=== PATIENT | male | born 1945 | race Caucasian/White ===

== ENCOUNTER 2019-03-25 09:46 | Emergency (ER) | payer BC, MEDICARE ==
[2019-03-25 10:25] LABS: ABS Eosinophils 0.1 10^3/ul (0-0.6); ABS Lymphocytes 0.5 10^3/ul (1.0-4.8); ABS Monocytes 0.5 10^3/ul (0-0.8); ABS Neutrophils 5.2 10^3/ul (1.5-7.7); Eosinophil % 1.2 %; Hematocrit 43 % (42-52); Hemoglobin 15.2 g/dL (14.0-18.0); Lymphocyte % 8.3 %; Mean Corpuscular HGB Conc 35 g/dL (31-36); Mean Corpuscular Hemoglobin 32 pg (27-31); Mean Corpuscular Volume 92 fL (80-94); Mean Platelet Volume 8.9 fL (7.4-10.4); Nucleated Red Blood Cells % 0.1; Platelet Count 214 10^3/uL (150-450); Red Cell Distribution Width 14 % (10-15); White Blood Count 6.4 10^3/uL (3.5-10.8)
[2019-03-25 10:43] LABS: ALT 41 U/L (7-52); AST 26 U/L (13-39); Albumin 4.1 g/dL (3.2-5.2); Alkaline Phosphatase 66 U/L (34-104); Anion Gap 7 mmol/L (2-11); Blood Urea Nitrogen 16 mg/dL (6-24); CO2 Carbon Dioxide 27 mmol/L (22-32); Calcium 9.1 mg/dL (8.6-10.3); Chloride 103 mmol/L (101-111); EGFR African American 82.2 (>60); EGFR Non-African American 67.9 (>60); Globulin 2.1 g/dL (2-4); Glucose 103 mg/dL (70-100); Potassium 4.3 mmol/L (3.5-5.0); Sodium 137 mmol/L (135-145); Total Protein 6.2 g/dL (6.4-8.9)
--- NOTE | 2019-03-25 10:57 | ED ---
Neurological HPI - HPI Summary HPI Summary: This pt is a 74 Y/O M presenting to [facility] with a CC of issues with his memory and confusion that have been increasing over the course of a year and worsened this morning. He states that he was driving home and was getting fuzzy last night after being at a clinic. He states that he barely remembers the drive home but does not remember going to bed. He currently denies any headache, chest pain, or recent fevers. His associate states that the pt made an unusual statement to his driver merchandiser about my computer is broken, I need more chicken to add to the cloud. The driver merchandiser also informed his associate that he has been having issues with his memory that has been increasing while he is in [place] for work and is unable to remember the event and makes more unusual comments. He states that he fell yesterday in [place] and states that he vaguely remember the event. He states that he has been having an increase of stress after his in June of 2018. He states that he does not have regular sleep and has been having recent illnesses. He denies any fever, chills, erythema of eyes, sore throat, CP, SOB, cough, abdominal pain, N/V, dysuria, hematuria, myalgia, edema, rash, or dizziness. He has a SHx of drinking alcohol rarely. He has a FHx of cardiac disease. He denies any pertinent PMHx. He has no aggravating or alleviating factors. 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 Negative: Headache, Dizziness, Nausea/Vomiting, Fever, Neck Pain/Stiffness, Chest Pain, Shortness of Breath - Allergy/Home Medications Allergies/Adverse Reactions: Allergies Allergy/AdvReac Type Severity Reaction Status Date / Time Penicillins Allergy Unknown Verified 03/25/19 09:52 Reaction Details Home Medications: Home Medications Acetylcarnitin/Alpha Lipoic AC [Acetyl l-Carnitine/Alpha] 1 cap PO DAILY [History Confirmed 03/25/19] Bio Shape 1 cap PO DAILY 03/25/19 [History Confirmed 03/25/19] Cholecalciferol CAP/TAB(NF) [Vitamin D3 CAP/TAB (NF)] 2,000 unit PO DAILY [History Confirmed 03/25/19] Ginkgo Biloba (NF) [Ginkgo Biloba Extract (NF)] 120 mg PO DAILY 03/25/19 [ History Confirmed 03/25/19] Ginseng 500 mg PO DAILY 03/25/19 [History Confirmed 03/25/19] Krill/Om-3/Dha/Epa/Phospho/Ast [Megared [place]-3 Krill Oil 500 mg] 1 cap PO DAILY 03/25/19 [History Confirmed 03/25/19] L.acidoph,Paracasei, B.lactis [Probiotic] 1 each PO DAILY 03/25/19 [History Confirmed 03/25/19] Niacin ER CAP* [Niaspan ER CAP*] 500 mg PO DAILY 03/25/19 [History Confirmed ] Rhodiola Rosea 1 cap PO DAILY 03/25/19 [History Confirmed 03/25/19] Rosuvastatin (NF) [Crestor (NF)] 40 mg PO DAILY 03/25/19 [History Confirmed ] Testosterone Cypionate (NF) 0.2 ml IM .2X/WEEK 03/25/19 [History Confirmed 03/25] Ubidecarenone [Coq-10 Tr] 400 mg PO DAILY 03/25/19 [History Confirmed 03/25/19] Vitamin B Complex CAP* [B Complex CAP*] 1 cap PO DAILY 03/25/19 [History Confirmed 03/25/19] Vitamin E CAP* 400 unit PO DAILY 03/25/19 [History Confirmed 03/25/19] metFORMIN* [Glucophage 500 MG TAB *] 500 mg PO DAILY 03/25/19 [History Confirmed 03/25/19] PMH/Surg Hx/FS Hx/Imm Hx Previously Healthy: Yes Endocrine/Hematology History: Denies: Hx Diabetes Cardiovascular History: Denies: Hx Deep Vein Thrombosis, Hx Hypertension Respiratory History: Denies: Hx Asthma Sensory History: Reports: Hx Contacts or Glasses Opthamlomology History: Reports: Hx Contacts or Glasses - Cancer History Hx Chemotherapy: No Hx Radiation Therapy: No - Surgical History Surgical History: Yes Surgery Procedure, Year, and Place: States that in earlier he had a hole repair in his diaphgram. - Immunization History Immunizations Up to Date: Yes Infectious Disease History: No Infectious Disease History: Denies: Traveled Outside the [place] in Last 30 Days - Family History Known Family History: Positive: Cardiac Disease - Social History Occupation: Employed Full-time Lives: With Family Alcohol Use: Rare Hx Substance Use: No Substance Use Type: Reports: None Hx Tobacco Use: No Smoking Status (MU): Never Smoked Tobacco Review of Systems Negative: Fever, Chills Negative: Erythema Negative: Sore Throat Negative: Chest Pain Negative: Shortness Of Breath, Cough Negative: Abdominal Pain, Vomiting, Nausea Negative: dysuria, frequency, hematuria, urgency Negative: Myalgia, Edema Negative: Rash Neurological: Negative - dizziness, Other - memory loss, confusion Psychological: Other - states increase in stress All Other Systems Reviewed And Are Negative: Yes Physical Exam - Summary Physical Exam Summary: Constitutional: Well-developed, Well-nourished, Alert. (-) Distressed Skin: Warm, Dry HENT: Normocephalic; Atraumatic Eyes: Conjunctiva normal Neck: Musculoskeletal ROM normal neck. (-) JVD, (-) Stridor, (-) Tracheal deviation Cardio: Rhythm regular, rate normal, Heart sounds normal; Intact distal pulses; The pedal pulses are 2+ and symmetric. Radial pulses are 2+ and symmetric. (-) Murmur Pulmonary/Chest wall: Effort normal. (-) Respiratory distress, (-) Wheezes, (-) Rales Abd: Soft. (-) Tenderness, (-) Distension, (-) Guarding, (-) Rebound Musculoskeletal: (-) Edema Lymph: (-) Cervical adenopathy Neuro: Alert, Oriented x3, Strength normal, Cranial nerves II-XII are grossly intact. (-) Dysmetria, (-) Nystagmus, (-) Ataxia by finger to nose testing, (-) Sensory deficit. No focal deficits, speech stumbles at times, disoriented Psych: Mood and affect Normal Triage Information Reviewed: Yes Vital Signs On Initial Exam: Initial Vitals Temp Pulse Resp BP Pulse Ox 99.3 F 86 14 137/82 97 03/25/19 09:49 03/25/19 09:49 03/25/19 09:49 03/25/19 09:49 03/25/19 09:49 Vital Signs Reviewed: Yes Procedures - Sedation Patient Received Moderate/Deep Sedation with Procedure: No Diagnostics - Vital Signs Vital Signs Temp Pulse Resp BP Pulse Ox 03/25/19 10:00 100 96 03/25/19 09:58 93 115/76 95 03/25/19 09:57 99 96 03/25/19 09:49 99.3 F 86 14 137/82 97 - Laboratory Lab Results: Lab Results 03/25/19 03/25/19 03/25/19 Range/Units 10:13 10:13 10:13 WBC 6.4 (3.5-10.8) 10^3/uL RBC 4.70 (4.18-5.48) 10^6 /uL Hgb 15.2 (14.0-18.0) g/dL Hct 43 (42-52) % MCV 92 (80-94) fL MCH 32 H (27-31) pg MCHC 35 (31-36) g/dL RDW 14 (10-15) % Plt Count 214 (150-450) 10^3/uL MPV 8.9 (7.4-10.4) fL Neut % (Auto) 81.5 % Lymph % (Auto) 8.3 % Bell % (Auto) 8.5 % Eos % (Auto) 1.2 % Baso % (Auto) 0.5 % Absolute Neuts (auto) 5.2 (1.5-7.7) 10^3/ul Absolute Lymphs (auto) 0.5 L (1.0-4.8) 10^3/ul Absolute Monos (auto) 0.5 (0-0.8) 10^3/ul Absolute Eos (auto) 0.1 (0-0.6) 10^3/ul Absolute Basos (auto) 0.0 (0-0.2) 10^3/ul Absolute Nucleated RBC 0.0 10^3/ul Nucleated RBC % 0.1 Sodium 137 (135-145) mmol/L Potassium 4.3 (3.5-5.0) mmol/L Chloride 103 (101-111) mmol/L Carbon Dioxide 27 (22-32) mmol/L Anion Gap 7 (2-11) mmol/L BUN 16 (6-24) mg/dL Creatinine 1.07 (0.67-1.17) mg/dL Est GFR ( Amer) 82.2 (>60) Est GFR (Non-Af Amer) 67.9 (>60) BUN/Creatinine Ratio 15.0 (8-20) Glucose 103 H (70-100) mg/dL Lactic Acid 0.7 (0.5-2.0) mmol/L Calcium 9.1 (8.6-10.3) mg/dL Total Bilirubin 1.60 H (0.2-1.0) mg/dL AST 26 (13-39) U/L ALT 41 (7-52) U/L Alkaline Phosphatase 66 (34-104) U/L Troponin I 0.05 H* (<0.03) ng/mL Total Protein 6.2 L (6.4-8.9) g/dL Albumin 4.1 (3.2-5.2) g/dL Globulin 2.1 (2-4) g/dL Albumin/Globulin Ratio 2.0 (1-3) Result Diagrams: 03/25/19 10:13 03/25/19 10:13 Lab Statement: Any lab studies that have been ordered have been reviewed, and results considered in the medical decision making process. - Radiology Skull X-Ray Radiology Interpretation Completed By: Radiologist Summary of Radiographic Findings: No radiopaque foreign body is noted in the skull other than dental filling. ED physician has reviewed this report. KUB X-Ray Radiology Interpretation Completed By: Radiologist Summary of Radiographic Findings: Hiatal hernia repair with surgical clips. No evidence of diaphragmatic mesh is. noted. ED physician has reviewed this report. CXR Radiology Interpretation Completed By: Radiologist Summary of Radiographic Findings: Surgical clips presumably from hiatal hernia repair. ED physician has reviewed this report. - CT Head CTA CT Interpretation Completed By: Radiologist Summary of CT Findings: ATHEROSCLEROSIS. NO INTERNAL CAROTID ARTERY STENOSIS BY NASCET CRITERIA. NO ANEURYSM, VASCULAR MALFORMATION, OCCLUSION, OR STENOSIS OF THE VISUALIZED INTRACRANIAL CIRCULATION. ED physician has reviewed this report. Brain MRI CT Interpretation Completed By: Radiologist Summary of CT Findings: #. No acute intracranial process evident. #. Mild to moderate cerebral involutional change and stigmata of chronic small vessel. ischemic disease. ED physician has reviewed this report. - EKG 1007 Cardiac Rate: NL - 75 BPM EKG Rhythm: Sinus Rhythm ST Segment: Normal Ectopy: None EKG Comparison: No Significant Change Summary of EKG Findings: NSR at 75 BPM, P waves, QRS complex, and T waves are within normal limits, T waves and intervals are normal, no ischemic changes. This is a normal EKG. Interpreted by Dr. Kan at 03/25/2019 1012. Course/Dx - Course Course Of Treatment: This pt is a 74 Y/O M presenting to [facility] with a CC of issues with his memory and confusion that have been increasing over the course of a year and worsened this morning. He states that he was driving home and was getting fuzzy last night after being at a clinic. He states that he barely remembers the drive home but does not remember going to bed. He currently denies any headache, chest pain, or recent fevers. His associate states that the pt made an unusual statement to his driver merchandiser about my computer is broken, I need more chicken to add to the cloud. He states that he has been having an increase of stress after his in June of 2018. He states that he does not have regular sleep and has been having recent illnesses. He denies any fever, chills, erythema of eyes, sore throat, CP, SOB, cough, abdominal pain, N/ V, dysuria, hematuria, increased urgency, increased frequency, myalgia, edema, rash, or dizziness. He has a SHx of drinking alcohol rarely. He has a FHx of cardiac disease. He denies any pertinent PMHx. He has no aggravating or alleviating factors. His PE found that he has No focal deficits, speech stumbles at times, and he is disoriented. He has a Troponin of .05. His EKG at 1007 shows NSR at 75 BPM, P waves, QRS complex, and T waves are within normal limits, T waves and intervals are normal, no ischemic changes. This is a normal EKG. His Head CTA shows the following: ATHEROSCLEROSIS. NO INTERNAL CAROTID ARTERY STENOSIS BY NASCET CRITERIA. NO ANEURYSM, VASCULAR MALFORMATION , OCCLUSION, OR STENOSIS OF THE VISUALIZED INTRACRANIAL CIRCULATION. His Skull X-Ray shows the following: No radiopaque foreign body is noted in the skull other than dental filling. His KUB X-Ray shows the following: Hiatal hernia repair with surgical clips. No evidence of diaphragmatic mesh is noted. Therese CXR shows the following: Surgical clips presumably from hiatal hernia repair. Brain MRI shows the following: No acute intracranial process evident. Mild to moderate cerebral involutional change and stigmata of chronic small vessel. ischemic disease. He will be discharged home with a Dx of confusion. - Diagnoses Provider Diagnoses: Confusion Discharge ED - Sign-Out/Discharge Documenting (check all that apply): Patient Departure - discharge - Discharge Plan Condition: Stable Disposition: HOME Patient Education Materials: Altered Mental Status (ED) Referrals: Devon Valle MD [Medical Doctor] - 04/01/19 4:00 pm Additional Instructions: Please follow up with Dr. Valle, neurology, at 4 PM on 04/01/2019 for further outpatient care and treatment. Return to the emergency department for any new or worsening symptoms. - Attestation Statements Document Initiated by Scribe: Yes Documenting Scribe: Lito Vidales Provider For Whom Scribe is Documenting (Include Credential): Kj Kan MD Scribe Attestation: Lito Franz, scribed for Kj Kan MD on 03/25/19 at 1722. Status of Scribe Document: Ready Consult Consult: Dr. Valle, Neurology, was consulted at 1135 and a consultation with the pt was requested. Dr. Valle is agreeable and will see the pt in the ED. Dr. Valle, Neurology, requested outpatient work up following the MRI today. The pt as an appointment for 1600 on Thursday04/01/2019.
[2019-03-25] MEDS ORDERED: Iohexol 350* (CONTRAST) 500 ML MDV IV ONE (11:15)
[2019-03-25] MEDS ORDERED: Iodixanol 320 (CONTRAST) 100 ML SDV IV ONE (11:17)
[2019-03-25 13:51] LABS: CRP High Sensitivity 0.84 mg/L (<2.00)
[2019-03-25 14:06] LABS: TSH (Thyroid Stimulating Horm) 1.7 mcIU/mL (0.34-5.60)
[2019-03-25 14:17] LABS: Folate 16.16 ng/mL (>3.99)
--- NOTE | 2019-03-25 15:39 | CONS ---
CONSULTATION REPORT: DATE OF CONSULT: 03/25/19 LOCATION: He is currently in the ER Bed 10. PRIMARY CARE PHYSICIAN: He has no primary care physician. REASON FOR CONSULTATION: Episodes of altered mental status. 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 He reports a past medical history significant for some stress in his life, but otherwise denies any medical problems. Review of his home medications note that he is on Crestor , testosterone, and metformin, but he denies any history of diabetes and states that the only medication that he takes at home is Synergy vitamins. He presents with a history of some acute episodes of altered mental status as well as some possible memory issues. His city secretary is with him today and she reports that over the last year whenever he would get stressed, he sometimes has difficulty with technology, will get discombobulated, but this is generally associated with stressful situations. He does have two 8-year-old children at home, he lost his in June 2018, and he works very hard. 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 This has been his usual state until this week apparently per the city secretary on Thursday he had been driving home and got confused at one point, had some difficulty remembering being at a certain location. Yesterday night he was being driven home, the patient has a driver courier that takes him to different locations and the driver courier noticed that he was making some unusual comments. He noted today this morning that he does not remember much of yesterday, does not remember being in clinic, and does not remember the drive. Per the city secretary, the patient said to the driver courier, "my computer is broken, I need more chicken to add to the cloud." He made a trip to [place] this week and had a hard time remembering the trip. There have been other reports that the driver courier has made recently that he has not been his usual self. The patient denies any history of headaches associated with the symptoms , he has no other focal symptoms at the time. He denies any history of seizures. There is no family history of seizures, no history of febrile seizures as a child, no history of meningitis or head trauma. No history of issues that he is aware of. He denies any prior events of altered mental status like this. He states that he drinks very rarely. He does not use any illicit substances. He does note that at times he sleeps better than others, and when he is under stress, he does not sleep as well, although he denies any history of known sleep apnea. He has never had a sleep study. He states that his appetite has been fairly good. He has not lost any weight. He denied any fevers, chills, or insect bites. He did get scratched by a dog several weeks ago, but no animal bites. No recent travel out of the country. He has had no recent illnesses. He does occasionally get diarrhea, but this is intermittently, not a regular thing and not new. No constipation, no nausea or vomiting. He has had no dysuria, frequency, or urgency. He has had no muscle aches or pains. No rashes. He notes no dizziness. He denies any history of prior stroke or heart attacks and generally has been very healthy. He states that he exercises regularly and is usually very active. PAST MEDICAL HISTORY: As noted above. He also has a history of abdominal surgery with repair of a hole in his diaphragm in 1999. It was at that point that he was told that he can no longer operate because leaning over an operating table would be too difficult with his history of surgeries. MEDICATIONS: The patient denied that he takes any prescription medicines at home other than Synergy vitamins, although the chart notes that he is on testosterone, rosuvastatin, and metformin. It is unknown when he last took these medications. ALLERGIES: PENICILLIN. FAMILY HISTORY: No history of strokes, heart attacks, cancer that he is aware of. No history of dementia in the family. SOCIAL HISTORY: Denies tobacco use, occasional alcohol use but rare. Lives with 2 sons that are 8 years old, recently lost his in June 2018. He works full-time. Denies any illicit substance use. PHYSICAL EXAM: Vital Signs: He is 99.3, pulse rate of 58 to 90, O2 saturations 94% to 96% on room air, blood pressure 120/77 to 114/79. In general , he is a well- nourished, well-developed gentleman in no acute distress. He is sitting on the [facility]. His city secretary is at the bedside. He is pleasant, well dressed, well groomed. HEENT: Normocephalic atraumatic. Sclerae are anicteric. Mucous membranes are moist. Oropharynx is clear. Nares are patent. Neck is supple. No thyromegaly. No carotid bruits. No meningismus. Chest: Clear to auscultation bilaterally. Cardiovascular: Regular rate and rhythm without murmurs, gallops or rubs. Abdomen is nontender. Extremities: No clubbing, cyanosis, or edema. His skin is warm and dry without lesions. On neurologic examination, he is awake, alert, oriented x3. His speech is fluent. There is no dysarthria. Repetition is intact. Recall of recent and remote events is generally intact with the exception of some lapses as noted above. His mood is concerned. Affect mood congruent. Funduscopic examination showed no evidence of papilledema or AV nicking. Cranial Nerves: Pupils are equally round and reactive to light and accommodation. Extraocular muscles are intact with no nystagmus, no diplopia, and no ptosis is noted. Visual rosales are full to confrontation. Facial sensation intact to light touch. Face is symmetric. His hearing is intact bilaterally. His palate raises symmetrically. Tongue is midline. Sternocleidomastoid and trapezius are 5/5. His motor exam is 5/5 throughout with good tone and bulk. There is no atrophy. No drift is appreciated in the upper or lower extremities. Sensation is intact to light touch, pinprick, vibration throughout. No focal deficits. DTRs are 2+ in the biceps, triceps, brachioradialis; 3+ at the patella bilaterally; 1+ at the ankles. He withdraws to Babinski bilaterally. [id number] and rapid alternating movements are intact. There is no resting tremor. No postural tremor. No intention tremor. Gait: His Romberg is negative. He is able to ambulate without difficulty. DIAGNOSTIC STUDIES/LAB DATA: Lab work includes a CBC with differential showed an MCH of 32, absolute lymphocyte count of 0.5. His complete metabolic profile with a glucose of 103, total bili of 1.60, total protein of 6.2. LFTs were normal. He did have a CT angiogram and a CT head. CT head showed no acute abnormalities, films reviewed. There is no hemorrhage appreciated, no shift. No extra-axial fluid collections. No hydrocephalus. Sinuses are clear. Orbits are unremarkable. His CTA of the head and neck showed atherosclerosis; no internal carotid artery stenosis; no aneurysm, vascular malformation, occlusion or stenosis of the visualized to cranial circulation. 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 He presents to the hospital today with some episodes of difficulty with complex tasks such as with electronics when he gets tired or frustrated, but in general good memory and good ability to function, although in the last month or two, he seemed to have had some worsening specifically in the last week he has had several episodes where he became acutely confused, does not remember traveling. There is at least 1 episode where he made some unusual comment to his driver courier. The etiology of these events is unclear but the differential is large. Given his lapse in memory, transient global amnesia is on the differential, although it has happened multiple times and the likelihood that this would occur multiple times is low. He had a CT angiogram and CT of the head. My suspicion for any sort of vascular event or stroke is low but my plan is to get an MRI of the brain with and without contrast. He has no seizure risk factors, but certainly subclinical seizures or complex partial seizures could cause transient alterations in mental status. I am going to get an EEG. I plan to check some basic blood work including vitamins, inflammatory markers, Lyme panel to look for any possible acute causes of his symptoms. His liver function is normal. His lab work is otherwise unremarkable. He notes no history of sleep apnea, although he has never been tested for sleep apnea. Extreme fatigue could be causing some unusual lapses in his memory. I see no evidence that this is infectious in etiology, and I do not have any good evidence at this point that he has dementia. I told him that the plan would be to get the MRI and the EEG, and assuming that those are negative, I plan to see him back in my clinic next week, at which point we can discuss additional workup. I do think he will likely be a good candidate for neurocognitive testing. Given his high functioning and his problems in the last year, I would like to get a good baseline and this may also help us tease out some underlying memory issues. He recently lost his and is currently still grieving. Given the stress of his life, recent in the family, the fact that he is raising two 8-year-old sons, and the workload that he has, this could be an acute stress reaction, some underlying anxiety, depression, although he is specifically denies any. He also mentioned that he has occasional episodes of diarrhea. He had a GI upset last week and felt that it could have been viral in nature, all of this could be related to a viral prodrome but again it would be an unusual presentation. He has no neck tenderness, meningismus; no headaches; no photophobia or phonophobia. My suspicion for an underlying meningitis or encephalitis is low. I do not think we need to proceed with any additional workup at this time. I will continue to follow him to make further recommendations as necessary. Thank you for the opportunity to participate in the care of this very distinct patient. [id number]/[facility] #: [id number] CANDACE
[2019-03-25 15:46] LABS: Urine Appearance Clear; Urine Bilirubin Negative (Negative); Urine Blood Negative (Negative); Urine Color Yellow; Urine Glucose Negative (Negative); Urine Ketones 1+ (Negative); Urine Nitrite Negative (Negative); Urine Protein Negative (Negative); Urine Urobilinogen Negative (Negative)
[2019-03-25] MEDS ORDERED: Gadoteridol* (CONTRAST) 279.3 MG/ML 10 ML IV ONE (16:29)
[2019-03-25 17:45] VITALS: BP 121/82
--- NOTE | 2019-03-25 21:51 | EEG ---
ELECTROENCEPHALOGRAPHY: DATE OF STUDY: 03/25/19 - EMERGENCY DEPT REFERRING PROVIDER: Dr. Yovany Valle. He is in the emergency room. CLINICAL PROBLEM: Excessive sleepiness, memory problems, cognitive changes. MEDICATIONS: Listed as none. REPORT: This 19-channel EEG is remarkable for background rhythms consisting of central slowing and bitemporal slowing. The patient is described as awake with eyes closed. Within a minute, the patient is in stage II sleep. There is 1 arm jerk which is accompanied by movement artifact, but no abnormalities in background rhythms. At times early in the tracing, left hemispheric slowing seems a bit more prominent than right. The patient remains in stage II sleep and a little bit into stage III sleep throughout the remainder of the recording. He was awoken at the end of the recording with background rhythms still appearing somewhat slow in the 8 cycles per second range posteriorly as well as some bitemporal slowing. The patient rapidly drowses back to sleep again after answering some questions. There are no focal or epileptiform features to this recording. CLINICAL IMPRESSION: Essentially normal sleep EEG. There is not adequate wakefulness to assess background wakening rhythms. There are no epileptiform discharges during this recording including during 1 episode of arm jerking. [id number]/[facility] #: [id number] [facility]ergio
== END 2019-03-25 17:45 | disposition home or self-care (01) ==
LOC: ED 09:46
DX: R14.0 Abdominal distension (gaseous) (principal); I70.90 Unspecified atherosclerosis; Z79.84 Long term (current) use of oral hypoglycemic drugs; Z79.899 Other long term (current) drug therapy; Z88.0 Allergy status to penicillin
CPT/HCPCS: 36415; 70250; 70496; 70498; 70553; 71045; 74018; 80053; 81003; 82607; 82746; 83605; 84443; 84484; 85025; 85652; 86038; 86141; 86618; 93005; 95819; 99285; A9579; Q9967